=== PATIENT | female | born 2000 | race Caucasian/White ===

== ENCOUNTER 2023-03-30 23:39 | Outpatient (CLI) | payer MEDICAID, OTHER ==
[~2023-03-30] VITALS: Ht 170.2 cm; Wt 105.5 kg
[2023-03-31 00:16] VITALS: BP 136/92
[2023-03-31 00:30] VITALS: BP 132/75
[2023-03-31] MEDS ORDERED: ONDA4TAB11 SL (00:49)
[2023-03-31] MEDS ORDERED: PREN-48 PO (00:50)
[2023-03-31] MEDS ORDERED: FAMO-119 PO (00:50)
[2023-03-31] MEDS ORDERED: BUPR100T7 PO (00:51)
[2023-03-31] MEDS ORDERED: HUM100VI SQ (00:53)
--- NOTE | 2023-03-31 08:18 | Physician Query-Final Dx ---
GILLIAN,03/31/23 0818: Clinic Account Progress/Dx Physician Query: Please give diagnosis Please include # weeks gestation Date of Service Mar 30, 2023 at 23:39 JEROD LEBRON DO 04/01/23 1734: Clinic Account Progress/Dx DIAGNOSIS: Diagnosis 32wk GA pelvic pain GILLIAN,DecMarch 31, 2023 08:18 JEROD LEBRON DO April 01, 2023 17:34
== END 2023-03-31 01:00 ==
LOC: WSo 23:39 → LDRP 23:42 → WSo 03-31 01:00
PROVIDERS: ATTEND Family Medicine
DX: O26.893 Other specified pregnancy related conditions, third trimester (principal); R10.9 Unspecified abdominal pain; Z3A.32 32 weeks gestation of pregnancy
CPT/HCPCS: 99213

== ENCOUNTER 2023-05-08 17:14 | Outpatient (CLI) | payer MEDICAID ==
[~2023-05-08] VITALS: Ht 170.2 cm; Wt 105.7 kg
[~2023-05-08 17:14] MED LIST: BUPR100T7 PO; FAMO-119 PO; HUM100VI SQ; ONDA4TAB11 SL; PREN-48 PO
--- NOTE | 2023-05-08 18:52 | Diagnostic Imaging Report ---
INDICATION: Decreased movement. Unable to detect heart tones in clinic. COMPARISON: None TECHNIQUE: Limited transpelvic sonogram was performed. FINDINGS: Single intrauterine is identified. Unfortunately, no heart tones can be identified on this exam. Additionally, there is no gross motion. There is minimal amniotic fluid. position is cephalic. Placenta is anterior. IMPRESSION: 1. Findings consistent with demise. 2. Preliminary results given to Dr. Dowling by the performing dry pan feeder. I agree with preliminary findings. Dictated by: Dictated on workstation # [id number]
--- NOTE | 2023-05-08 18:54 | History & Physical-OB ---
OB - Chief Complaint & HPI Date/Time Date of Admission: Date of Admission: Date seen by a Provider: May 08, 2023 Time Seen by a Provider: 18:00 Chief Complaint/History Hx : 2 Hx Para: 0 Gestational Age in Weeks: 38 Gestational Age in Days: 0 Indication for induction: medical complication Other 22 yo originally stated first , but later did note one previous miscarriage, at 38w0d per her report, presented to clinic today reporting need for new Ob provider as she had moved to [place] within the last week. She gave LMP of 09/19/2022, which would make KAIT 06/26/23, but states her due date was given to her as 05/22/23 after US at 9 weeks. She reported that she had complicated by diabetes. She believes she has type 2 diabetes, but stated that insulin resistance had been mentioned as early as childhood, and she states she was diagnosed at the beginning of and started insulin then. She reports taking 30 units of lantus daily and 26 units of novolog with each meal. She did not have monitor or log with her but reported her fasting blood sugars have been in the 70s to 80s and around 120 all other times. She stated she was receiving care with Dr. Duran in [place], [place] and that she saw high risk, Dr. Sorensen via [facility] in [place], but stopped seeing her about 6 weeks ago after a disagreement. On further questioning, she notes that Dr. Sorensen recommended delivery at that time due to abnormal umbilical blood flow, and she disagreed and decided not to proceed with and then MFM wouldn't see her anymore. After that she says she saw Dr. Obando and Dr. Valencia and reports the baby was still doing okay. She was getting twice weekly NSTs at some point and BPPs as well at some point, but last saw Dr. Duran about 3 weeks ago. She states that Dr. Duran told her she should get an Ob closer to her. She denies vaginal bleeding or leaking fluid, admits "less" movement. At clinic paperwork signed to obtain records from Dr. Duran's office. I was able to talk to Dr. Duran and she told me that she recommended early on to patient that she seek care at a higher level center due to her complications, and per report patient saw Dr. Valencia and was referred to [facility] who around 32 weeks recommended due to umbilical artery doppler concerns, and patient left the hospital AMA. She also saw Dr. Duran around 3 weeks ago and at that time they did an NST which was non-reactive and she recommended at that time, and patient was concerned about the baby needing a NICU and being , so left there stating she would go to the hospital in [place], but did not and they had not heard further from her since then. Per their records, she reported being with 2 early first trimester miscarriages. Had an A1c above 9 as long ago as 2016. In the office I was unable to doppler heart tones, and unable to see cardiac activity with bedside US. She was sent to the hospital for confirmation. Allergies and Home Medications Allergies Coded Allergies: latex (Verified Allergy, Intermediate, Rash, 03/31/23) Patient Home Medication List Home Medication List Reviewed: Yes Bupropion HCl (Wellbutrin Sr) Unknown Strength Tablet.er, Unknown Dose PO DAILY, (Reported) Entered as Reported by: HUGH HALL on 03/31/2350 Last Action: Reviewed Insulin Aspart (Novolog Flexpen) 100 Unit/Ml (3 Ml) Solution, 26 UNITS SQ AC, (Reported) Entered as Reported by: MAREN TURK on 05/08/231856 Last Action: Reviewed Insulin Glargine,Hum.rec.anlog (Lantus) 100 Unit/Ml Vial, 30 UNIT SQ DAILY, (Reported) Entered as Reported by: MAREN TURK on 05/08/231856 Last Action: Reviewed Vit No.78/Iron/FA (Prenatabs FA Tablet) 29 Mg Iron-1 Mg Tablet, 1 EACH PO DAILY, (Reported) Entered as Reported by: HUGH HALL on 03/31/2349 Last Action: Reviewed Trazodone HCl (Trazodone HCl) 50 Mg Tablet, 50 MG PO HS, (Reported) Entered as Reported by: MAREN TURK on 05/08/231856 Last Action: Reviewed Discontinued Medications Famotidine (Pepcid) 20 Mg Tablet, 20 MG PO DAILY, (Reported) Entered as Reported by: HUGH HALL on 03/31/2349 Last Action: Discontinued Insulin NPH Hum/Reg Insulin Hm (Humulin 70-30 Vial) 100 Unit/Ml (70-30) Vial, 25 UNIT SQ AC, (Reported) Entered as Reported by: HUGH HALL on 03/31/23 005 Last Action: Discontinued Ondansetron (Ondansetron Odt) 4 Mg Tab.rapdis, 4 MG SL Q4H PRN for NAUSEA/VOMITING, (Reported) Entered as Reported by: HUGH HALL on 03/31/23 0049 Last Action: Discontinued OB - History Hx of Present Care: Yes Obstetrical Complications: Gestational Diabetes Information Induced Hypertension: No Maternal Gestational Diabetes: Yes Hemorrhage: No Obstetrical History Hx : 2 Hx Para: 0 Hx # Term Pregnancies: 0 Hx # Pregnancies: 0 Hx Total # of Abortions (Spona: 1 Hx Multiple Gestation: No Hx Ectopic : No Hx Stillbirth: No Hx Complication: Yes Hx Induced Hypertens: No Hx Maternal Gestational Diabet: Yes Hx Hemorrhage: No Patient Past Medical History PMHx: Bipolar disorder Diabetes SurgHx: Right knee surgery x 2 Social History/Family History 2nd Hand Smoke Exposure: No OB - Admission Exam Physical Exam HEENT: NCAT Abdomen: Non tender Extremities: Edema (trace) Cervical Dilatation: 1cm Effacement: 0% Station: -3 Alexander Scoring Tool (Modified) Dilation (cm): 1-2cm (1) Effacement (%): 0-30% (0) Descent/Station: -3 (0) Cervix Consistency: Soft (2) Cervix Position: Posterior (0) Alexander Score: 3 OB - Assessment/Plan/Diagnosis Assessment Admission Dx Decreased movement Type I diabetes complicating 38 weeks gestation Admission Status: Other (Clinic) Plan Problems: (1) Intrauterine Assessment & Plan: Ultrasound confirmed no heart tones. CHANG below 4. Discussed options with patient, recommend considering induction of labor as vaginal delivery would be lower risk in the group home if possible. Discussed c ervical ripening due to unfavorable cervix and expected long course as well as the possible need for if induction is not successful. She is open to this, but wants to wait until tomorrow to have time to go home and process. Discussed risk of infection and preeclampsia- she had normal BP in the office, but did have BP 140/94 here just before discharge, which was taken after discussion about . Strongly encouraged to stay in the hospital even if she wants to delay start of induction in order to monitor more closely, but she was adamant about going home immediately and no further evaluation now and that she would come back in the morning. Also discussed considering cytotec at home tonight if desired, she prefers to wait until tomorrow at admission. (2) Type 1 diabetes mellitus complicating in third trimester, antepartum MAREN TURK MD May 08, 2023 18:54
[2023-05-08 18:55] VITALS: BP 145/90
[2023-05-08] MEDS ORDERED: INSU100V6 SQ (18:57)
[2023-05-08] MEDS ORDERED: INSU100I14 SQ (18:57)
[2023-05-08] MEDS ORDERED: TRZ50T PO (18:57)
== END 2023-05-08 19:01 | disposition home or self-care (01) ==
LOC: WSo 17:14 → LDRP 17:14 → WSo 19:01
PROVIDERS: ATTEND Family Medicine
DX: O36.8190 Decreased fetal movements, unspecified trimester, not applicable or unspecified (principal); Z3A.00 Weeks of gestation of pregnancy not specified
CPT/HCPCS: 76815